=== PATIENT | male | born 1960 | race Caucasian/White ===

== ENCOUNTER → 2023-10-21 06:56 | Outpatient (REF) | payer OTHER, SELFPAY | LOC: RAD 06:56 | PROVIDERS: ATTENDING PHYSICIAN Otolaryngology Otolaryngology/Facial Plastic Surgery; FAMILY PHYSICIAN Internal Medicine | DX: J32.9 Chronic sinusitis, unspecified (principal) | CPT/HCPCS: 70486 ==

== ENCOUNTER → 2025-01-25 08:04 | Outpatient (REF) | payer OTHER, SELFPAY | LOC: RAD 08:04 | PROVIDERS: ATTENDING PHYSICIAN Specialist; FAMILY PHYSICIAN Internal Medicine | DX: D32.0 Benign neoplasm of cerebral meninges (principal) | CPT/HCPCS: 70470; Q9967 ==

== ENCOUNTER 2025-06-24 23:55 | Inpatient (IN) | payer OTHER, MEDICARE, SELFPAY ==
[2025-06-24 19:57] VITALS: BP 131/95
[2025-06-24 20:25] LABS: Hematocrit 47.8 % (39.0-52.0); Hemoglobin 16.8 g/dL (13.0-18.0); Mean Corp Hgb Conc. 35.1 g/dL (33.0-37.0); Mean Corpuscular Volume 91.6 fL (80.0-94.0); Nucleated Red Blood Cells % 0 % (-); Platelet Count 204 10^3/uL (130-400); Red Cell Dist. Width 12.8 % (11.5-14.5)
[2025-06-24 20:38] LABS: ALT (SGPT) 35 U/L (0-50); AST (SGOT) 24 U/L (17-59); Albumin 4.4 g/dl (3.5-5.0); Alkaline Phosphatase 36 U/L (38-126); Blood Urea Nitrogen 15 mg/dl (9-20); Calcium 9.3 mg/dl (8.4-10.2); Carbon Dioxide 27 mmol/L (22-30); Chloride 105 mmol/L (98-107); Glucose 94 mg/dl (70-99); Potassium 3.8 mmol/L (3.5-5.1); Sodium 137 mmol/L (135-145); Total Protein 6.8 g/dl (6.3-8.2); eGFR > 60.00
[2025-06-24 22:00] VITALS: BP 122/77
--- NOTE | 2025-06-24 22:17 | ED.GENMED ---
History of Present Illness
<Smith Fuchs MD, Resident - Last Filed: 06/24/25 23:03>
General
Chief Complaint: Heart Rate Problem
Source: patient and spouse
Time Seen by Provider: 06/24/25 21:56
History of Present Illness
History of Present Illness:
Patient is a 65-year-old male with past medical history significant for hypothyroidism, essential hypertension, atrial fibrillation, TIA who is on chronic anticoagulation and metoprolol with complaint of palpitations and pain in the chest.
His symptoms started this Wednesday on 06/12 while he was on a cruise ship with his for their anniversary. He felt some tightness in his chest, palpitations, exertional shortness of breath and his mobile dina gave him alarm that his
heart rate was elevated and irregular. They went to the [facility], where his heart rate was ranging up to 150s. They had to stop at hospital and get IV Lopressor and was discharged on metoprolol 25 mg twice daily. The next day his heart
rate was still elevated so they went back to the hospital and were given metoprolol 50 mg every 8 hours. His Eliquis remained uninterrupted throughout this time. He and his landed to the airport today and patient felt short of breath and had
some chest pain so he came to the ER for further evaluation.
He sees the receiving operator [facility]. He had his cardioversion done in 2022 and was started on Eliquis and metoprolol for A-fib at that time.
Denies any abdominal pain, lightheadedness, dizziness, presyncope or syncopal episodes.
Past History
<Smith Fuchs MD, Resident - Last Filed: 06/24/25 23:03>
Past History
ED Past Medical History: Arrthythmia, HTN and Other (M�ni�re's, vertigo)
ED Past Surgical History: None
Patient has exhibited threatening behavior?: No
PSI?: No
Social History
Tobacco: Non-smoker
Alcohol: None
Review of Systems
<Smith Fuchs MD, Resident - Last Filed: 06/24/25 23:03>
Review of Systems
All Other Systems: ROS reviewed and negative except as documented in HPI and ROS
Phy Exam
<Smith Fuchs MD, Resident - Last Filed: 06/24/25 23:03>
General Physical Exam
General Presentation: well appearing and moderate distress (Anxious about his heart rate and chest pain)
General age: appears stated age
General Skin: warm and dry
Cardiovascular Exam
Cardiovascular Exam: no edema, irregularly irregular and tachycardia
Pulmonary Exam
Pulmonary Exam: lungs clear and no respiratory distress
Gastrointestinal Exam
Gastrointestinal Exam: normal bowel sounds, non tender and soft
Neurological Exam
Neurological Exam: alert and oriented x3
Musculoskeletal Exam
Musculoskeletal Exam: full ROM
Psychiatric Exam
Psychiatric Exam: anxious
Course
<Smith Fuchs MD, Resident - Last Filed: 06/24/25 23:03>
Orders/Labs/Results
Orders:
Orders
06/24/25 20:00
EKG [Electrocardiogram (*1)] Urgent
Reason for Study: Abnormal EKG
06/24/25 20:01
EKG- Treatment ONCE
06/24/25 20:14
Complete Blood Count/With Diff Urgent
Comprehensive Metabolic Panel Urgent
Magnesium Urgent
Comment: ADD ON
Troponin I Urgent
Comment: ADD ON/RUN ON SERUM
06/24/25 22:14
CR Chest Portable - 1 View Urgent
Comment:
Reason For Exam: dyspnea
Reason Study Needs to be Portable: Unable to Transport
06/24/25 22:15
Add On- LAB Urgent
Tests Added?: magnesium
06/24/25 22:46
Diltiazem HCl [Cardizem] 10 mg IV NOW STA
06/24/25 23:00
Diltiazem 125 mg/125 ml Nss [Cardizem] 125 mg in 125 ml IV PER PROTOCOL
Initial dose in mg/hr, then titrate:: 5
Titrate to keep:: Heart rate 80-100 bpm
Titrate by mg/hr:: 5 mg/hr
Frequency of titrations (minutes):: 15
Maximum dose in mg/hr:: 15
06/24/25 23:21
Electrocardiogram (*1) Urgent
Reason for Study: Chest Pain
EKG- Treatment ONCE
Abnormal Lab Results
06/24/25
20:14
MCH 32.2 H pg
(27.0-31.0)
MPV 10.9 H fL
(7.4-10.4)
Absolute Monos (auto) 0.7 H 10^3/uL
(0.1-0.6)
Alkaline Phosphatase 36 L U/L
(38-126)
06/24/25 20:14
06/24/25 20:14
Vital Signs
Initial and Last Documented VS:
Initial Vital Signs
Temp Pulse Resp BP Pulse Ox
98.9 F 79 18 131/95 98
06/24/25 19:57 06/24/25 19:57 06/24/25 19:57 06/24/25 19:57 06/24/25 19:57
Last Documented Vital Signs
Temp Pulse Resp BP Pulse Ox
98.9 F 135 17 129/69 97
06/24/25 19:57 06/24/25 22:54 06/24/25 22:47 06/24/25 22:54 06/24/25 22:47
<Francis Vizcarra, - Last Filed: 06/24/25 23:27>
Orders/Labs/Results
Orders:
Orders
06/24/25 20:00
EKG [Electrocardiogram (*1)] Urgent
Reason for Study: Abnormal EKG
06/24/25 20:01
EKG- Treatment ONCE
06/24/25 20:14
Complete Blood Count/With Diff Urgent
Comprehensive Metabolic Panel Urgent
Magnesium Urgent
Comment: ADD ON
Troponin I Urgent
Comment: ADD ON/RUN ON SERUM
06/24/25 22:14
CR Chest Portable - 1 View Urgent
Comment:
Reason For Exam: dyspnea
Reason Study Needs to be Portable: Unable to Transport
06/24/25 22:15
Add On- LAB Urgent
Tests Added?: magnesium
06/24/25 22:46
Diltiazem HCl [Cardizem] 10 mg IV NOW STA
06/24/25 23:00
Diltiazem 125 mg/125 ml Nss [Cardizem] 125 mg in 125 ml IV PER PROTOCOL
Initial dose in mg/hr, then titrate:: 5
Titrate to keep:: Heart rate 80-100 bpm
Titrate by mg/hr:: 5 mg/hr
Frequency of titrations (minutes):: 15
Maximum dose in mg/hr:: 15
06/24/25 23:21
Electrocardiogram (*1) Urgent
Reason for Study: Chest Pain
EKG- Treatment ONCE
Abnormal Lab Results
06/24/25
20:14
MCH 32.2 H pg
(27.0-31.0)
MPV 10.9 H fL
(7.4-10.4)
Absolute Monos (auto) 0.7 H 10^3/uL
(0.1-0.6)
Alkaline Phosphatase 36 L U/L
(38-126)
06/24/25 20:14
06/24/25 20:14
Vital Signs
Initial and Last Documented VS:
Initial Vital Signs
Temp Pulse Resp BP Pulse Ox
98.9 F 79 18 131/95 98
06/24/25 19:57 06/24/25 19:57 06/24/25 19:57 06/24/25 19:57 06/24/25 19:57
Last Documented Vital Signs
Temp Pulse Resp BP Pulse Ox
98.9 F 135 17 129/69 97
06/24/25 19:57 06/24/25 22:54 06/24/25 22:47 06/24/25 22:54 06/24/25 22:47
<Smith Fuchs MD, Resident - Last Filed: 06/24/25 23:03>
MDM/Problems Addressed
Differential Diagnosis Includes:
Acute coronary syndrome
Paroxysmal atrial fibrillation
MDM/Problems Addressed:
Patient came in with irregularly irregular rhythm, tachycardia, exertional dyspnea and palpitations
Troponin negative
EKG consistent with atrial fibrillation with rapid ventricular response
Patient already takes metoprolol and Eliquis with history of paroxysmal atrial fibrillation
Heart rate ranging in [id number] Cardizem infusion
Discussed with hospitalist, plan for admission
<Smith Fuchs MD, Resident - Last Filed: 06/24/25 23:03>
*Pulse Oximetry
SaO2: 98
Oxygen Mode of Delivery: Room air
Patient hypoxic: no
*Critical Care Note
Total Time (30-74mins, 75-104mins- exclusive of procedures): Not Applicable
<Francis Vizcarra DO - Last Filed: 06/24/25 23:27>
Update Note
Update Note:
2320: Patient complaining of left chest pressure. Repeat EKG performed, no evidence for ST elevation MO. Patient still is in A-fib, rate 105. On Cardizem drip. Hospitalist is present at bedside.
ED Attending Note
<Smith Fuchs MD, Resident - Last Filed: 06/24/25 23:03>
-
Portions of this chart may have been created with voice recognition software.� Occasional wrong word or��sound alike� substitutions may have occurred due to the inherent limitations of voice recognition software.
<Francis MedinaJenn Vizcarra, DO - Last Filed: 06/24/25 23:27>
ED Attending Note
Patient seen and examined by attending physician: Yes
I performed the substantive portion of visit, reviewed & personally made and approve the management plan that is documented in note by myself or DINA.: Yes
I performed a history and physical exam of patient and discussed management with resident, I reviewed resident's note and agree with documented findings and plan of care.: Yes
ED Attending Note:
65-year-old male presents to the ER for further evaluation of rapid atrial fibrillation. Patient was on a cruise earlier this week when he noted onset of palpitations. He received treatment both on the crew ship and an emergency department in the
[facility]. He was placed on increasing doses of metoprolol without any improvement in his symptoms. He reports feeling very short of breath and fatigued. On coming home today through the airport he had to stop several times while walking
due to severe fatigue and dyspnea. He denies peripheral edema. He has been taking his Eliquis without fail since 2022. He denies chest pain at the current time. Vital signs reviewed, patient is awake, alert, very hard of hearing mainly in his
right ear, mucous membranes moist, conjunctiva pink, heart irregularly irregular tachycardic rhythm, lungs are clear to auscultation, abdomen is soft and nontender, extremities without edema, 2+ DP pulses present symmetric bilateral feet, GCS is 15.
I discussed with patient concern for severe fatigue related to prolonged A-fib and benefit of further ACS assessment, although he will likely require cardioversion while in the hospital. Patient initiated on Cardizem bolus and drip for rate
control. Will discuss with hospitalist for further care. I reviewed lab results with resident physician, initial troponin minimally elevated at 0.022. I independently viewed and interpreted portable chest x-ray showing no infiltrates. I reviewed
radiology interpretation which reveals pulmonary vascularity top normal.
Critical care statement: A total of 41 minutes of critical care time was provided for this patient. This includes management of unstable vital signs, evaluation of the patient at bedside, reviewing the patient's pertinent medical records, discussion
with consultants, review of old EKGs and review of pertinent medical records. This time with separate from time utilized to perform the aforementioned documented procedures
Discharge Plan
Departure
Patient Disposition: Admit
Date of Disposition: 06/24/25
Time of Disposition: 23:03
Presentation/result/management discussed w/ accepting MD/DO: Hospitalist
Patient with high blood pressure during this ER visit?: No
Discharge Problem:
Atrial fibrillation with rapid ventricular response
Prescriptions:
No Action
Eliquis 5 mg tablet
5 mg PO BID Qty: 30 0RF
potassium chloride 20 mEq Tablet Extended Release
20 meq PO QPM
acetazolamide 250 mg Tablet
250 mg PO DAILY
levothyroxine 75 mcg Tablet
75 mcg PO HS
triamterene-hydrochlorothiazid 37.5-25 mg Tablet
1 tab PO HS
azelastine 137 mcg (0.1 %) Aerosol,Herrick
1 spray INTRANASAL DAILY
Lipitor
1 tab PO DAILY
Patient Comments:
pt does not know milligrams
Referrals:
UNKNOWN - PT DOES,NOT KNOW [Family Provider]
Interventions
Interventions:
*Risk Screen - Suicide Last Done: 06/24/25 19:57
*General Assessment Last Done: 06/24/25 19:57
*Neglect/Abuse Screening Last Done: 06/24/25 19:57
*ED- Fall Risk Assessment Last Done: 06/24/25 19:57
*ED COVID-19 Vaccine History Last Done: 06/24/25 19:57
*ED Influenza Vaccine History Last Done: 06/24/25 19:57
ED- Cardiac Assessment Last Done: 06/24/25 22:30
ED- Pulmonary Assessment Last Done: 06/24/25 22:30
Discharge Date and Time
Print Language: CZECH
[2025-06-24 22:39] LABS: Magnesium 2.0 mg/dl (1.6-2.3)
[2025-06-24 22:53] LABS: Troponin I 0.022 ng/ml
[2025-06-24 22:54] VITALS: BP 129/69
[2025-06-24] MEDS: CARDIZEM 10 MG IV (22:54)
[2025-06-24 23:00] VITALS: BP 127/73
[2025-06-24] MEDS: CARDIZEM 125 IV (23:00)
[2025-06-24 23:05] VITALS: BMI 37.4
--- NOTE | 2025-06-24 23:07 | HPS.HSE ---
Addendum entered and electronically signed by Fahad Brannon DO 06/25/25 00:38:
Patient seen and examined independently. Agree with findings and plan as set forth by ELY Paez.
Patient is a 65y M with PMH significant for A-Fib, hypertension and hypothyroidism who presents to ED for evaluation of A-Fib. Patient with remote h/o A-Fib in 2022 s/p cardioversion. He states that he has had no known issues since that time.
He has remained faithfully on Eliquis since 2022 and notes that he has missed no doses. Patient was on a cruise recently and developed dizziness, diaphoresis and fatigue on Wednesday. He was seen at a hospital in [facility] and noted to be
in A-Fib. He received a single dose of IV Lopressor. He was discharged on BID metoprolol. He was seen in the [facility] and his metoprolol dose was increased to 50mg q8.
Patient states that he has had continued symptoms of fatigue, dizziness and exertional dyspnea. He presented to the ED this evening for further evaluation.
Ass:
Paroxysmal Atrial Fibrillation with Rapid Ventricular Response
Benign Hypertension
Hypothyroidism
Meniere's Disease
RUTH on CPAP
Plan:
Admit to IVU for further evaluation and treatment.
Maintain IV diltiazem for now and titrate as needed for rate control.
Continue metoprolol.
Continue Eliquis.
Cardiology evaluation in the AM - ? cardioversion if remains in A-Fib at that time (now 6 days from onset).
Check TFTs.
Follow for any new / worsening symptoms.
Original Note:
Family Physician
-
Family Physician: NOT KNOW UNKNOWN - PT DOES
Chief Complaint
-
tachycardia
History of Present Illness
Patient is a 65-year-old male with past medical history significant for hypertension, hypothyroidism and paroxysmal atrial fibrillation who presented to [facility] ED for evaluation of tachycardia. Patient reports elevated heart rate started last Wednesday
while on a cruise for his anniversary. Patient was seen on [facility] and a hospital in the . At hospital patient was administered IV metoprolol and discharged with PO metoprolol 25mg BID. Cruise physician increased metoprolol to 50mg
q8 for elevated HR. He notes that he has had intermittent exertional dyspnea and intermittent chest tightness. He denies any fever, chills, cough, nausea, vomiting, constipation, diarrhea or urinary symptoms.
Medical History
Past Medical History
Past Medical History: Reports Other
Additional Past Medical History:
hypertension
hypothyroidism
paroxysmal atrial fibrillation
Meniere's disease
TIA
hx viral meningitis
hearing loss
RUTH
Past Surgical History: Reports Other
Additional Past Surgical History:
sinus surgery 2007
R foot arthritis injection 04/2023
Social History
Tobacco: Non-smoker
Alcohol: Occasional (rare)
Drug: None
Personal:
Living: With Family
Employment: Employed
Family History
Family History: Other (Mother: RA Father: CAD Brother: HF)
Allergies / Home Medications
Allergies reflects when Allergies were last updated in [facility].
Home Medications with original date entered in [facility]
Allergy/Medication List:
Allergies
Allergy/AdvReac Type Severity Reaction Status Date / Time
lisinopril Allergy Mild Unknown Verified 06/24/25 20:00
Home Medications
apixaban 5 mg tablet (Eliquis) 5 mg PO BID #30 tabs 07/30/22
acetazolamide 250 mg tablet 250 mg PO DAILY Blood pressure 08/01/22
azelastine 137 mcg (0.1 %) nasal spray 1 spray intranasal DAILY Allergies 08/01/22
levothyroxine 75 mcg tablet 75 mcg PO HS Thyroid 08/01/22
potassium chloride 20 mEq tablet,extended release 20 meq PO QPM Electrolyte Repletion 08/01/22
triamterene 37.5 mg-hydrochlorothiazide 25 mg tablet 1 tab PO HS Blood pressure 08/01/22
Lipitor 1 tab PO DAILY 06/24/25
amlodipine 10 mg tablet 10 mg PO DAILY 06/24/25
losartan 25 mg tablet 25 mg PO DAILY 06/24/25
metoprolol tartrate 50 mg tablet 50 mg PO Q8 06/24/25
Review of Systems
-
History Source: Patient
Constitutional: Denies Fever or Chills
EENT: Denies Sore Throat
Respiratory: Reports Trouble Breathing (exertional dyspnea ); Denies Cough or Hemoptysis
Cardiac: Reports Chest Pain and Palpitations; Denies Diaphoresis or Syncope
Abdomen/GI: Denies Abdominal Pain, Nausea, Vomiting or Diarrhea
: Denies Dysuria, Frequency or Urgency
Musculoskeletal: Denies Joint Pain
Skin: Denies Rash
Neurological: Denies Dizzy, Headache or Weakness
Physical Exam
Vital Signs
Vital Signs
Temp Pulse Resp BP Pulse Ox
98.9 F 135 17 129/69 97
06/24/25 19:57 06/24/25 22:54 06/24/25 22:47 06/24/25 22:54 06/24/25 22:47
Physical Exam
General: Well Developed, Well Nourished, No Apparent Distress, Comfortable, Conversant and Obese
HEENT: NormoCephalic, Moist mucous membranes, PERRLA, Nose Appears Normal and Ears Appear Normal
Respiratory: Clear and Non Labored Respirations; No Wheezes, Rales or Rhonchi
Cardiac: S1/S2, Irregular Rhythm and Tachycardia; No Murmur or Peripheral Edema
GI: Soft, Non Tender, Non Distended and Normal Bowel Sounds
Musculoskeletal: No Clubbing, No Cyanosis and No Edema
Skin: Warm and IV/Catheter Site
Neuro: Awake and AO x 3
Psych: Calm and Intact Judgment/Insight
Laboratory Results
-
06/24/25 20:14
06/24/25 20:14
Laboratory Results
Total Bilirubin 1.2 mg/dl (0.2-1.3) 06/24/25 20:14
AST 24 U/L (17-59) 06/24/25 20:14
ALT 35 U/L (0-50) 06/24/25 20:14
Alkaline Phosphatase 36 U/L (38-126) L 06/24/25 20:14
Troponin I Cancelled 06/24/25 22:14
Data Reviewed
-
Diagnostic Radiology: Report Reviewed by me (CXR: Pulmonary vascularity at least top normal.)
Lab Data: Labs Reviewed by me
Impression/Plan
-
IMPRESSION/PLAN:
#tachycardia likely 2/2 atrial fibrillation
#paroxysmal atrial fibrillation
palpitation, exertional dyspnea, chest tightness intermittently since last Wednesday
Labs unremarkable
EKG: ATRIAL FIBRILLATION WITH RAPID VENTRICULAR RESPONSE
LEFT AXIS DEVIATION
CXR: Pulmonary vascularity at least top normal.
- Admit to IVU
- Consult Cardiology
- IV Cardizem gtt
- continue Eliquis and metoprolol
#hypertension
- continue losartan
- amlodipine on hold for last 3 days per cruise ship physician
#hypothyroidism
- continue levothyroxine
#RUTH
- CPAP HS & PRN
#Meniere's disease
#hearing loss
#hx viral meningitis
#TIA
Code status: full code
DVT prophylaxis: Eliquis
[2025-06-24 23:30] VITALS: BP 141/97
[2025-06-25] VITALS (12 sets, daily range): BP systolic 101–128; BP diastolic 62–85; PULSE 56; BMI 37.4; BMI 37.5
--- NOTE | 2025-06-25 03:03 | PTCARENOTE ---
received the patient from the ED. AAOx3. ALAKANUK. Afib on tele- 80s-100s. increased rates with movement. bp 106/67. denies any lightheadness/dizziness. mild palpitations at times. patient states having intermittent middle chest pressure that has been on
and off for the last 6 days. denies any pain at this time. cardizem gtt at 5 ml/hr. complains of dyspnea on exertion. 96% on RA. Respiratory at bedside- placed patient on CPAP. educated patient to inform RN with any new changes. NPO. call delgado
within reach. makes needs known.
reviewed lopressor order with Kristopher Negro [employer]. will retime medication and add hold parameters- see mar.
[2025-06-25 03:30] LABS: HDL Cholesterol 51 mg/dl; LDL Cholesterol, Calculated 50 mg/dl; Very Low Density Lipoprotein 26 mg/dl (0-30)
[2025-06-25 03:44] LABS: Troponin I 0.021 ng/ml
[2025-06-25] MEDS: SYNTHROID 75 MCG PO (06:16)
--- NOTE | 2025-06-25 07:51 | CON.CAR ---
Consultation
Consultation Request
Date/Time Consultation Requested: 06/25/2025 02:10
Date/Time Consultation Performed: 06/25/2025 07:50
Requesting Provider: ELY Paez
Performing Provider: ELY Rhoades for Dr. Guillen
Reason for Consultation: Atrial fibrillation with rapid ventricular reasponse
Medical History
-
Chief Complaint: Elevated heart rate
History of Present Illness:
Hood Azevedo is a 65-year-old male (known to Dr. Jaeger, his primary biscuit machine operator), with paroxysmal atrial fibrillation, TIA, hypertension, bradycardia, M�ni�re's disease, and RUTH on CPAP presented to the ER with elevated heart rate. He was on
a cruise and developed dizziness, diaphoresis, and fatigue. He was seen at a medical clinic in the [facility] and was found to be in atrial fibrillation with rapid ventricular response. He was given a single dose of intravenous Lopressor
and was discharged on oral metoprolol twice daily. He was then seen in the [facility] and it was increased to every 8 hours. He has had continued symptoms of exertional dyspnea, fatigue, and dizziness. He had the symptoms in 2022 during his
prior episode of paroxysmal atrial fibrillation. He is not having any chest pain. No syncope/presyncope. He reports compliance with CPAP. He has not had any missed doses of apixaban since starting the drug.
Past Medical History
Past Medical History: Arrhythmias (Paroxysmal atrial fibrillation), HTN, Hypercholesterolemia and Other (TIA, M�ni�re's disease, RUTH)
Past Surgical History: Other (ENT)
Social History
Tobacco: Non-Smoker
Alcohol: None
Drug: None
Personal:
Living: With Family
Employment: Employed (Schoolbus buggy driver)
Family History
Family History: Reviewed & Not Pertinent
Allergies / Home Medications
Allergy/AdvReac Type Severity Reaction Status Date / Time
lisinopril Allergy Mild Unknown Verified 06/24/25 20:00
�Medication �Instructions �Recorded �Confirmed �Type
apixaban 5 mg tablet (Eliquis) 5 mg PO BID #30 tabs 07/30/22 06/24/25 Rx
acetazolamide 250 mg tablet 250 mg PO DAILY Blood pressure 08/01/22 06/24/25 History
azelastine 137 mcg (0.1 %) nasal 1 spray intranasal DAILY Allergies 08/01/22 06/24/25 History
spray
levothyroxine 75 mcg tablet 75 mcg PO HS Thyroid 08/01/22 06/24/25 History
potassium chloride 20 mEq 20 meq PO QPM Electrolyte Repletion 08/01/22 06/24/25 History
tablet,extended release
triamterene 37.5 1 tab PO HS Blood pressure 08/01/22 06/24/25 History
mg-hydrochlorothiazide 25 mg tablet
Lipitor 1 tab PO DAILY 06/24/25 06/24/25 History
amlodipine 10 mg tablet 10 mg PO DAILY 06/24/25 06/24/25 History
losartan 25 mg tablet 25 mg PO DAILY 06/24/25 06/24/25 History
metoprolol tartrate 50 mg tablet 50 mg PO Q8 06/24/25 06/24/25 History
Review of Systems
-
History Source: Patient
All other systems: Negative unless noted
Constitutional: Fatigue
EENT: No Symptoms
Respiratory: No Symptoms
Cardiac: No Symptoms
Abdomen/GI: No Symptoms
: No Symptoms
Musculoskeletal: No Symptoms
Skin: No Symptoms
Neurological: Dizzy
Endocrine: No Symptoms
Hematologic/Lymphatic: No Symptoms
Physical Exam
Vital Signs
Temp Pulse Resp BP Pulse Ox
98.3 F 92 20 111/72 98
06/25/25 07:35 06/25/25 02:00 06/25/25 07:35 06/25/25 02:20 06/25/25 07:35
Lab Results
11/30/25 20:14
06/24/25 20:14
Troponin I 0.021 ng/ml 06/25/25 02:46
Physical Exam
General: Well Developed, Well Nourished, No Apparent Distress and Comfortable
HEENT: Normocephalic, Anicteric and Moist Mucous Membranes
Respiratory: Clear and Non Labored Respirations
Cardiac: S1/S2 and Irregular Rhythm
Breast: Deferred by me
GI: Soft, Non Tender, Non Distended and Normal Bowel Sounds
Rectal: Deferred by Provider
Genito-urinary: No Costovertebral Tender
Musculoskeletal: No Clubbing, No Cyanosis and No Edema
Skin: Warm and Dry
Neuro: AO x 3
Hematologic/Lymphatic: No Lymphadenopathy
Psych: Calm
Impression / Plan
-
I/P: 65M with paroxysmal atrial fibrillation, TIA, hypertension, bradycardia, M�ni�re's disease, and RUTH on CPAP presented to the ER with atrial fibrillation with rapid ventricular response. Onset at least 1 week ago while he was on a cruise.
Evaluated in the [facility].
Primary biscuit machine operator: Dr. Jaeger
Paroxysmal atrial fibrillation
- Rates elevated. He is on both diltiazem and metoprolol tartrate. Hold metoprolol tartrate.
- He had sinus bradycardia with atenolol in the past. This resolved with discontinuation.
- Oral Anticoagulation: Eliquis 5 mg twice daily, he denies missed doses and abnormal bleeding
- [id number]: score at least 4 (HTN, prior TIA, age 65-74)
- We discussed rhythm management with ablation. He is interested in this. Will have him meet with EP as an outpatient.
- TSH 13.30, free T40.90, on levothyroxine 75 mcg
- DCCV today
Essential hypertension
- Stable on current medical therapy, continue
TIA, linked to new atrial fibrillation, cholesterol has been at goal, less than 70
Hypothyroidism, on levothyroxine
Obesity, BMI 37.5, he would benefit from weight loss
RUTH on CPAP, reports adherence
Data Reviewed
-
EKG: Report Reviewed by me (Currently atrial fibrillation, rate 98)
Radiology: Report Reviewed by me (Pulmonary vascularity at least top normal.)
Medical Tests (Nuc Med, Echo etc): Report Reviewed by me
Labs: Labs Reviewed by me
Old Records: Reviewed
[2025-06-25] MEDS: COZAAR 25 MG PO (08:03)
[2025-06-25] MEDS: DIAMOX 250 MG PO (08:03)
[2025-06-25] MEDS: ELIQUIS 5 MG PO (08:03)
[2025-06-25 09:12] LABS: Troponin I 0.014 ng/ml
--- NOTE | 2025-06-25 11:47 | CM ---
spoke to pt and in room, he is prev indep, lives with his in a 1 story home with 4 steps to enter. he has a cane and a walker at home to use if needed. plan is for dc to home when medically stable.
--- NOTE | 2025-06-25 12:52 | PTCARENOTE ---
Patient received at change of shift out of bed to the chair. Diltiazem gtt initially infusing at 10mg/hr, increased to 15mg/hr as the patient's HR was 110s-120s. Discussed NPO status in anticipation of AMBROSE/CV today. Afib on telemetry. Oxygen
saturation 98% on room air. The patient denies chest pain or pressure. Patient to EP lab for cardioversion at approximately 1000 and returned at approx 1240. SB with first degree AVB following CV. Diltiazem gtt now off. The patient denies feeling
dizzy or lightheaded, reports feeling tired after CV. Plan of care discussed. Call delgado within reach. Care ongoing.
--- NOTE | 2025-06-25 13:15 | W.PN.HOSP.TC ---
Addendum entered and electronically signed by Sloan Malik MD 06/25/25 13:22:
Patient presented with atrial fibrillation with rapid ventricular response. Thyroid function testing with subclinical hypothyroidism. Recommend repeat thyroid function testing in 4 weeks and follow-up with primary doctor. Would avoid increasing
dose in current setting with rapid ventricular response status post cardioversion as risk outweighs benefits.
Original Note:
Today's Communication/Plan
-
po lopressor prn
op cards f/u
Assessment / Plan
Assessment / Plan
General: Well Developed, Well Nourished, No Apparent Distress, Comfortable, Conversant and Obese
HEENT: NormoCephalic, Moist mucous membranes, PERRLA, Nose Appears Normal and Ears Appear Normal
Respiratory: Clear and Non Labored Respirations; No Wheezes, Rales or Rhonchi
Cardiac: S1/S2, regular rhythm
GI: Soft, Non Tender, Non Distended and Normal Bowel Sounds
Musculoskeletal: No Clubbing, No Cyanosis and No Edema
Skin: Warm and IV/Catheter Site
Neuro: Awake and AO x 3
Psych: Calm and Intact Judgment/Insight
Paroxysmal Atrial Fibrillation with Rapid Ventricular Response
Benign Hypertension
Hypothyroidism
Meniere's Disease
RUTH on CPAP
Plan:
Status post Cardizem drip
Status post cardioversion and now remains in normal sinus rhythm
Patient with history of bradycardia. Discussed with Dr. Coley upon discharge plan for Lopressor 50 mg as needed for rapid ventricular response
Outpatient cardiology follow-up
Continue Eliquis
BP well controlled overall. Continue losartan/triamterene/HCTZ. Hold norvasc for now. f/u as PCP.
DVt ppx-eliquis
d/w with cardiology-okay for dc.
More than 30 minutes spent in discharge including
Final examination of the patient
Summarizing hospital stay
Instructions for continuing care to all relevant caregivers
Preparation of discharge records, prescriptions, and referral forms
Total time spent (in minutes): 53
Anticipated Discharge: Today
Subjective/Interval History
-
Date of Service: June 25, 2025
seen post cardioversion
no cp
Objective Data
-
Vital Signs:
Vital Signs
Temp Pulse Resp BP Pulse Ox
97 F 63 18 103/74 96
06/25/25 12:34 06/25/25 12:34 06/25/25 12:34 06/25/25 12:34 06/25/25 12:34
--- NOTE | 2025-06-25 13:18 | W.DCSUMMARY ---
Discharge Summary
Discharge Data
Date of Admission: 06/24/25
Date of Discharge: 06/25/25
-
Pending Results: No
Hospital Course
65y M with PMH significant for A-Fib, hypertension and hypothyroidism who presents to ED for evaluation of A-Fib. Patient with remote h/o A-Fib in 2022 s/p cardioversion. patient was on a cruise recently and developed dizziness, diaphoresis and
fatigue on Wednesday. He was seen at a hospital in [facility] and noted to be in A-Fib. He received a single dose of IV Lopressor. He was discharged on BID metoprolol. He was seen in the [facility] and his metoprolol dose was
increased to 50mg q8. Patient was started on IV Cardizem drip. Patient was eval by cardiology. Patient with history of sinus bradycardia in the past. Patient underwent cardioversion. Post cardioversion patient remained in normal sinus rhythm.
Heart rate was fluctuating between 52-60 at times discussed with cardiology. On discharge patient should take metoprolol 50 mg as needed for rapid ventricular response. Patient presented with atrial fibrillation with rapid ventricular response.
Thyroid function testing with subclinical hypothyroidism. Recommend repeat thyroid function testing in 4 weeks and follow-up with primary doctor. Would avoid increasing dose in current setting with rapid ventricular response status post
cardioversion as risk outweighs benefits. Case was discussed with Dr. Coley post [facility] and [place] for discharge.
Discharge Plan
-
Patient Disposition: Home (Routine Discharge)
Discharge Diagnosis/Procedures: Atrial fibrillation with rapid ventricular response
Procedure: Cardioversion 06/25/2025
Subclinical hypothyroidism
Diet: Low Cholesterol
Activity: As tolerated
Driving Restrictions: No driving for 24 hours
Blood Work: Thyroid function testing in 4 weeks via primary doctor.
Stand Alone Forms: Return to Work
Referrals:
Emmy Tomlin MD [Active, Cardiology] - 07/09/25 4:20 pm
UNKNOWN - PT DOES,NOT KNOW [Family Provider]
Additional Discharge Medication Instructions: You are cardioverted on 06/25/2025. You must continue Eliquis without any missed doses for 4 weeks.
Prescriptions:
Continued
Eliquis 5 mg tablet
5 mg PO BID Qty: 30 0RF
potassium chloride 20 mEq Tablet Extended Release
20 meq PO QPM
acetazolamide 250 mg Tablet
250 mg PO DAILY
levothyroxine 75 mcg Tablet
75 mcg PO HS
triamterene-hydrochlorothiazid 37.5-25 mg Tablet
1 tab PO HS
azelastine 137 mcg (0.1 %) Aerosol,[place]
1 spray INTRANASAL DAILY
Lipitor
1 tab PO DAILY
Patient Comments:
pt does not know milligrams
losartan 25 mg tablet
25 mg PO DAILY
Changed
metoprolol tartrate 50 mg Tablet
50 mg PO DAILYPRN PRN (Reason: HR>120) Qty: 30 0RF
Rx Instructions:
50mg Lopressor to take PRN if in rapid ventricular response.
Discontinued
amlodipine 10 mg tablet
10 mg PO DAILY
Rx Instructions:
on hold for past 3 days
Discharge Orders:
Discharge Patient (As Directed); Ordered 06/25/25
Ordered By: Sloan Malik
Care Plan Goals
Care Plan Goals:
Problem: Readiness for enhanced knowledge related to diagnosis and treatment plan
Goal: Understand your diagnosis and treatment plan needs, including medications if applicable.
Instructions: Know your diagnosis, underlying causes and treatment plan options, including medications if applicable. Consult with your health care team to learn about your diagnosis and treatment plan, including medications if applicable.
Discharge Date and Time
Discharge Date/Time: 06/25/25 14:51
Print Language: OCCITAN
--- NOTE | 2025-06-25 14:42 | PTCARENOTE ---
Discussed discharge instructions with patient and significant other. Patient and S/O verbalized understanding. PIV INT removed. Telemetry Pack removed. Patient discharged to home with belongings, education packets, work note, and discharge
instructions.
[2025-06-25 17:46] LABS: Hepatitis C Antibody Negative (Negative)
== END 2025-06-25 14:51 | disposition home or self-care (01) | DRG 310 ==
LOC: IVU 23:55
PROVIDERS: Emergency Medicine; Nurse Practitioner Family; Student in an Organized Health Care Education/Training Program; ADMITTING PHYSICIAN Hospitalist; ATTENDING PHYSICIAN Hospitalist; CONSULT PHYSICIAN Internal Medicine Cardiovascular Disease; EMERGENCY PHYSICIAN Emergency Medicine
PROC: 5A2204Z Restoration of Cardiac Rhythm, Single (ICD-10-PCS; 2025-06-25)
PROC: 5A09357 Assistance with Respiratory Ventilation, Less than 24 Consecutive Hours, Continuous Positive Airway Pressure (ICD-10-PCS; 2025-06-25)
DX: I48.0 Paroxysmal atrial fibrillation (principal); I10 Essential (primary) hypertension; E03.8 Other specified hypothyroidism; H91.90 Unspecified hearing loss, unspecified ear; G47.33 Obstructive sleep apnea (adult) (pediatric); H81.09 Meniere's disease, unspecified ear; M19.071 Primary osteoarthritis, right ankle and foot; Z79.01 Long term (current) use of anticoagulants; Z79.890 Hormone replacement therapy; Z79.899 Other long term (current) drug therapy
CPT/HCPCS: 71045; 80053; 80061; 83735; 84439; 84443; 84484; 85025; 86803; 92960; 93005; 94660; 96374; 96376; 99285

== ENCOUNTER 2025-07-10 17:34 | Emergency (ER) | payer OTHER, MEDICARE, SELFPAY ==
[2025-07-10 17:40] VITALS: BP 162/83
[2025-07-10 17:56] LABS: Hematocrit 49.6 % (39.0-52.0); Hemoglobin 17.8 g/dL (13.0-18.0); Mean Corp Hgb Conc. 35.9 g/dL (33.0-37.0); Mean Corpuscular Volume 88.3 fL (80.0-94.0); Nucleated Red Blood Cells % 0 % (-); Platelet Count 208 10^3/uL (130-400); Red Cell Dist. Width 12.3 % (11.5-14.5)
[2025-07-10 18:17] LABS: ALT (SGPT) 38 U/L (0-50); AST (SGOT) 31 U/L (17-59); Albumin 5.0 g/dl (3.5-5.0); Alkaline Phosphatase 47 U/L (38-126); Blood Urea Nitrogen 14 mg/dl (9-20); Calcium 9.9 mg/dl (8.4-10.2); Carbon Dioxide 26 mmol/L (22-30); Chloride 101 mmol/L (98-107); Glucose 84 mg/dl (70-99); Potassium 3.6 mmol/L (3.5-5.1); Sodium 137 mmol/L (135-145); Total Protein 7.5 g/dl (6.3-8.2); eGFR > 60.00
[2025-07-10 18:28] LABS: Troponin I 0.018 ng/ml
[2025-07-10 22:19] LABS: Troponin I 0.015 ng/ml
[2025-07-10 23:45] VITALS: BP 158/81
[2025-07-10 23:51] VITALS: BMI 29.6
[2025-07-10 23:55] VITALS: BP 158/81
[2025-07-11] VITALS: BP 154/75
--- NOTE | 2025-07-11 00:18 | ED.GENMED ---
History of Present Illness
General
Chief Complaint: Chest Pain
Time Seen by Provider: 07/11/25 00:07
History of Present Illness
History of Present Illness:
Patient is a 65-year-old male with history of A-fib hypertension RUTH presenting to the emergency department chest tightness. Patient states for the past day has had intermittent chest tightness and pressure. It comes and goes without any obvious
clear triggers. Last about 10 minutes. The chest pressure is not exertional however been having some shortness of breath upon exertion. No leg swelling. No orthopnea. Has been compliant with his Eliquis. No fevers chills or URI symptoms.
Past History
Past History
ED Past Medical History: Arrthythmia, HTN and Other (M�ni�re's, vertigo)
ED Past Surgical History: None
Patient has exhibited threatening behavior?: No
PSI?: No
Social History
Tobacco: Non-smoker
Alcohol: None
Phy Exam
Physical Exam
Physical Exam:
GENERAL: in no acute distress
HEENT: normocephalic, extraocular movements intact, moist oral mucosa
NECK: normal inspection
RESPIRATORY: no respiratory distress, clear to auscultation bilaterally
CARDIOVASCULAR: regular rate and rhythm, 2+ radial pulses
ABDOMEN/: soft, non-distended, non-tender to palpation, no rebound or guarding
EXTREMITIES: non-tender, no edema/swelling
NEUROLOGIC: awake and alert, moves all extremities
SKIN: warm
Scores
Heart Score for Chest Pain Patients
STEMI patient?: No
History: Slightly or Non-Suspicious
ECG: Normal
Age: >45 - <65 years
Risk Factors: 1 or 2 Risk Factors
Troponin: </= Normal Limit
Heart Score for Chest Pain Patients: 2
Heart Score Risk: 2.5% MACE over next 6 weeks
Course
Orders/Labs/Results
Orders:
Orders
07/10/25 17:35
EKG [Electrocardiogram (*1)] Urgent
Reason for Study: Chest Pain
EKG- Treatment ONCE
07/10/25 17:48
Complete Blood Count/With Diff Urgent
Comprehensive Metabolic Panel Urgent
Troponin I Urgent
07/10/25 21:34
EKG [Electrocardiogram (*1)] Urgent
Reason for Study: Chest Pain
07/10/25 21:35
EKG- Treatment ONCE
07/10/25 21:41
Troponin I Urgent
07/11/25 00:18
CR Chest - 2 Views Urgent
Comment:
Reason For Exam: ssob
Abnormal Lab Results
07/10/25
17:48
MCH 31.7 H pg
(27.0-31.0)
07/10/25 17:48
07/10/25 17:48
Vital Signs
Initial and Last Documented VS:
Initial Vital Signs
Temp Pulse Resp BP Pulse Ox
98.2 F 67 20 162/83 98
07/10/25 17:40 07/10/25 17:40 07/10/25 17:40 07/10/25 17:40 07/10/25 17:40
Last Documented Vital Signs
Temp Pulse Resp BP Pulse Ox
98.2 F 60 18 157/77 96
07/10/25 17:40 07/11/25 01:23 07/11/25 01:23 07/11/25 01:23 07/11/25 01:00
MDM/Problems Addressed
Differential Diagnosis Includes:
Patient is a 65-year-old man with history of hypertension, atrial fibrillation on Eliquis, prior stroke presenting to the emergency department with chest pain and dyspnea on exertion. On arrival vitals unremarkable exam is reassuring. Differential
is broad but consist of atypical ACS versus musculoskeletal versus CHF though less likely. History exam not consistent with pe especially because patient is on Eliquis. Blood work obtained prior to evaluation unremarkable. Delta troponin is
negative. EKG per my interpretation is nonischemic. Will obtain a chest x-ray given chest pain/dyspnea on exertion. Patient will benefit from chest pain hotline follow-up given risk factors and has dyspnea on exertion could be his anginal
equivalent.
*Pulse Oximetry
SaO2: 97
Oxygen Mode of Delivery: Room air
Patient hypoxic: no
*Critical Care Note
Total Time (30-74mins, 75-104mins- exclusive of procedures): Not Applicable
Update Note
Update Note:
Chest x-ray per my interpretation without any obvious focal opacity. Will discharge patient at this time with chest pain hotline follow-up.
ED Attending Note
-
Portions of this chart may have been created with voice recognition software.� Occasional wrong word or��sound alike� substitutions may have occurred due to the inherent limitations of voice recognition software.
Discharge Plan
Departure
Patient Disposition: Home (Routine Discharge)
Date of Disposition: 07/11/25
Time of Disposition: 01:26
Patient with high blood pressure during this ER visit?: Yes
Discharge Problem:
Chest pain
Instructions: Chest Pain CBC Follow Up
Prescriptions:
No Action
Eliquis 5 mg tablet
5 mg PO BID Qty: 30 0RF
potassium chloride 20 mEq Tablet Extended Release
20 meq PO QPM
acetazolamide 250 mg Tablet
250 mg PO DAILY
levothyroxine 75 mcg Tablet
75 mcg PO HS
azelastine 137 mcg (0.1 %) Aerosol,[place]
1 spray INTRANASAL DAILY
losartan 25 mg tablet
25 mg PO DAILY
atorvastatin
PO DAILY
acetazolamide [Diamox] 250 mg Tablet
250 mg PO DAILY
triamterene-hydrochlorothiazid 37.5-25 mg Capsule
1 cap PO DAILY
amlodipine 10 mg Tablet
10 mg PO DAILY
Referrals:
UNKNOWN - PT DOES,NOT KNOW [Family Provider]
Activity Restrictions/Additional Instructions:
You were evaluated in the Emergency Department today for chest pain. Your evaluation has shown no signs of medical conditions requiring emergent intervention at this time, however we recommend that you follow up with your primary care physician or
your debeaker as soon as possible for further testing as an outpatient.
Please schedule an appointment for follow up with your debeaker as soon as possible. You will receive a call from them.
Return to the Emergency Department if you experience worsening or uncontrolled chest pain, shortness of breath, light headedness, feeling faint, nausea, vomiting, or any other concerning symptoms.
Thank you for choosing us for your care.
Interventions
Interventions:
*General Assessment Last Done: 07/10/25 17:40
*Neglect/Abuse Screening Last Done: 07/10/25 17:40
*ED COVID-19 Vaccine History Last Done: 07/10/25 17:40
*ED Influenza Vaccine History Last Done: 07/10/25 17:40
[facility] Fall Risk Assessment Tool Last Done: 07/10/25 23:53
*Risk Screen - Suicide (C-SSRS) Last Done: 07/10/25 17:40
Discharge Date and Time
Print Language: ITALIAN
[2025-07-11 01:00] VITALS: BP 136/76
[2025-07-11 01:23] VITALS: BP 157/77
== END 2025-07-11 02:10 | disposition home or self-care (01) ==
LOC: EMR 17:34
PROVIDERS: Emergency Medicine; EMERGENCY PHYSICIAN Student in an Organized Health Care Education/Training Program
DX: R07.89 Other chest pain (principal); G47.33 Obstructive sleep apnea (adult) (pediatric); I10 Essential (primary) hypertension; I48.91 Unspecified atrial fibrillation; Z79.01 Long term (current) use of anticoagulants
CPT/HCPCS: 99285; 71046; 80053; 84484; 85025; 93005

== ENCOUNTER → 2025-07-20 09:10 | Outpatient (REF) | payer OTHER, SELFPAY | LOC: RCS 09:10 | PROVIDERS: ATTENDING PHYSICIAN Nurse Practitioner; FAMILY PHYSICIAN Internal Medicine | DX: R06.09 Other forms of dyspnea (principal) | CPT/HCPCS: 78452; 93017; A9500 ==